=== PATIENT | male | born 1970 | race Hispanic/Latino ===

== ENCOUNTER 2022-10-03 09:04 | Day surgery (SDC) | payer OTHER ==
[2022-10-01 14:21] VITALS: BMI 26.4
[2022-10-03] MEDS ORDERED: PROPOFOL 0 ML ONE (10:25)
[2022-10-03] MEDS ORDERED: PROPOFOL 40 ML ONE (10:25)
[2022-10-03] MEDS ORDERED: Lidocaine 2% MPF 10 ML AMP (For Epidural Use) ONE (10:25)
== END 2022-10-03 13:05 | disposition home or self-care (01) ==
LOC: CSHSDC 09:04
PROVIDERS: ATTEND Internal Medicine Gastroenterology
PROC: 0DJD8ZZ Inspection of Lower Intestinal Tract, Via Natural or Artificial Opening Endoscopic (ICD-10-PCS; principal; 2022-10-03)
DX: Z12.11 Encounter for screening for malignant neoplasm of colon (principal); K64.8 Other hemorrhoids; I10 Essential (primary) hypertension; E11.9 Type 2 diabetes mellitus without complications; Z85.47 Personal history of malignant neoplasm of testis; Z90.79 Acquired absence of other genital organ(s)
CPT/HCPCS: J2704